=== PATIENT | female | born 1975 | race Caucasian/White ===

== ENCOUNTER 2017-04-28 21:40 | Emergency (ER) | payer OTHER ==
[2017-04-28] MEDS ORDERED: MORPHINE SULFATE 4 MG INJ ONE ×2 (22:02→22:18)
[2017-04-28] MEDS ORDERED: Phenergan 25 MG INJ ONE (22:02)
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
[2017-04-28] MEDS ORDERED: MORPHINE SULFATE 4 MG INJ IV ONE ×2 (22:17→22:18)
[2017-04-28] MEDS ORDERED: Phenergan 25 MG INJ IV ONE (22:18)
[2017-04-28] MEDS ORDERED: SILVADENE 50 GM TP ONE ×2 (23:14→23:17)
[2017-04-28 23:31] VITALS: BP 128/71; PULSE 89; O2SAT 99
== END 2017-04-28 23:41 | disposition home or self-care (01) ==
LOC: ED 21:40
DX: T22.10XA Burn of first degree of shoulder and upper limb, except wrist and hand, unspecified site, initial encounter (principal); T21.11XA Burn of first degree of chest wall, initial encounter; T20.17XA Burn of first degree of neck, initial encounter; T24.112A Burn of first degree of left thigh, initial encounter; T24.111A Burn of first degree of right thigh, initial encounter; T52.0X1A Toxic effect of petroleum products, accidental (unintentional), initial encounter
CPT/HCPCS: 96374; 96375; 99284; J2270; J2550; A9270-GY

== ENCOUNTER 2023-12-27 16:04 | Emergency (ER) | payer OTHER, SELFPAY ==
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
[2023-12-27 17:05] VITALS: RESP 18; TEMP 96.7
[2023-12-27 18:39] VITALS: BP 115/65; PULSE 51; O2SAT 97
[2023-12-27] MEDS ORDERED: TORAdol 30 mg Injection IM ONE (18:43)
[2023-12-27] MEDS ORDERED: TYLENOL EXTRA STRENGTH 500 MG PO STA (18:43)
[2023-12-27] MEDS ORDERED: TYLENOL EXTRA STRENGTH 500 MG ONE (18:47)
[2023-12-27] MEDS ORDERED: TORAdol 30 mg Injection ONE (18:47)
--- NOTE | 2023-12-27 19:14 | XRAY ---
Indication: Pain following fall. Comparison: None 3 view right elbow demonstrates osteopenia and tiny spurring medial epicondyle/coronoid process. No other bony, articular, or soft tissue abnormalities.
--- NOTE | 2023-12-27 19:14 | XRAY ---
Indication: Pain following fall. Comparison: None 3 view right knee demonstrates osteopenia and minimal medial joint space narrowing. No other bony, articular, or soft tissue abnormalities.
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
== END 2023-12-27 19:11 | disposition home or self-care (01) ==
LOC: ED 16:04
DX: S09.90XA Unspecified injury of head, initial encounter (principal); S80.01XA Contusion of right knee, initial encounter; S50.01XA Contusion of right elbow, initial encounter; S16.1XXA Strain of muscle, fascia and tendon at neck level, initial encounter; W01.0XXA Fall on same level from slipping, tripping and stumbling without subsequent striking against object, initial encounter; Y92.512 Supermarket, store or market as the place of occurrence of the external cause; Y99.0 Civilian activity done for income or pay; R51.9 Headache, unspecified
CPT/HCPCS: 70450; 72125; 73080; 73562; 96372; 99283; J1885; A9270-GY

== ENCOUNTER 2024-05-14 21:46 | Emergency (ER) | payer OTHER ==
[2024-05-14 22:10] VITALS: TEMP 97.5
[2024-05-14] MEDS ORDERED: Zofran 4 MG/2 ML VIAL ONE (22:11)
[2024-05-14] MEDS ORDERED: Sodium Chloride 0.9% 1000 ML 1,000 ML ONE (22:11)
[2024-05-14] MEDS: Sodium Chloride 0.9% 1000 ML 1,000 ML IV STA (22:13)
[2024-05-14] MEDS: Zofran 4 MG/2 ML VIAL IV ONE (22:13)
--- NOTE | 2024-05-14 22:14 | ERPHSYRPT ---
- History of Present Illness Time Seen by Provider: 05/14/24 21:48 Historian: patient Exam Limitations: no limitations Patient Subjective Stated Complaint: pt states vomiting and diarrhea for the past 2 days Triage Nursing Assessment: pt ambulated into the er; pt is axo x4; c/o vomiting; pt states 4/10 pain to head; c/o N/V/D; active bowel sounds in all quads; abd round, large, soft, tender; tenderness present to epigastric region; skin PDW; no respiratory distress present; hypertensive Physician History: 48 years old female with history of fibromyalgia not taking any medications presented in the ER with complains of abdominal pain with nausea vomiting diarrhea for the last 3 days with progressive worsening. Patient reports multiple episodes of nonprojectile, nonbilious vomiting without hematemesis and also having multiple episodes of loose stool. Patient is unable to hold much down and feels weak fatigued tired and dehydrated. Denies any fever or chills. No known sick contact. Allergies/Adverse Reactions: Penicillins Allergy (Verified 05/14/24 21:50) Home Medications: Furosemide [Lasix] 20 mg PO DAILY 05/14/24 [History] Omeprazole 20 mg PO DAILY 05/14/24 [History] Topiramate [Topamax] 50 mg PO BID 05/14/24 [History] Hx Tetanus, Diphtheria Vaccination/Date Given: No (unsure) Hx Influenza Vaccination/Date Given: No Hx Pneumococcal Vaccination/Date Given: No Immunizations Up to Date: No Travel Risk - International Travel Have you traveled outside of the country in past 3 weeks: No - Emerging Infectious Disease Are you exhibiting symptoms associated with any current EIDs: Yes Symptoms: Abdominal Pain, Diarrhea, Headaches/Body Aches/, Vomitting - Review of Systems Constitutional: No Symptoms Ears, Nose, & Throat: No Symptoms Respiratory: No Symptoms Cardiac: No Symptoms Abdominal/Gastrointestinal: Abdominal Pain, Nausea, Vomiting, Diarrhea Genitourinary Symptoms: No Symptoms Musculoskeletal: Myalgias Skin: No Symptoms Neurological: No Symptoms Psychological: No Symptoms Endocrine: No Symptoms Hematologic/Lymphatic: No Symptoms Immunological/Allergic: No Symptoms - Past Medical History Pertinent Past Medical History: Yes Neurological History: Other Respiratory History: Other Other Medical History: FIBROMYALGIA, INTERSTITIAL LUNG DISEASE - Past Surgical History Past Surgical History: Yes Neuro Surgical History: No Pertinent History Cardiac: Cardiac Catheterization Respiratory: Other Gastrointestinal: No Pertinent History Genitourinary: No Pertinent History Musculoskeletal: No Pertinent History Female Surgical History: Section Other Surgical History: BRONCHOSCOPY - Female History Hx Now: (unkn) - Social History Smoking Status: Never smoker Exposure to second hand smoke: No Drug Use: none Patient Lives Alone: No - Social Determinants of Health Will the patient participate in the screening: Yes Do you worry about a steady place to live?: No Do you have any problems with any of the following?: No known problems In the past 12 months,have you had to go without utilities?: No Transportation Issues: No Has anyone in your support network made you feel unsafe?: No Have you or anyone in your house had to go without enough: No - Nursing Vital Signs Nursing Vital Signs: Initial Vital Signs Temperature 97.5 F 05/14/24 21:51 Pulse Rate 62 05/14/24 21:51 Respiratory Rate 18 05/14/24 21:51 Blood Pressure 150/80 05/14/24 21:51 O2 Sat by Pulse Oximetry 97 05/14/24 21:51 Pain Scale Pain Intensity 4 - Physical Exam General Appearance: no apparent distress, alert Eye Exam: PERRL/EOMI Ears, Nose, Throat Exam: normal ENT inspection Neck Exam: normal inspection, supple, full range of motion Respiratory Exam: normal breath sounds, lungs clear Cardiovascular Exam: regular rate/rhythm, normal heart sounds Gastrointestinal/Abdomen Exam: soft, normal bowel sounds, tenderness (Neurolyse more on the left side) Back Exam: normal inspection, normal range of motion Extremity Exam: normal inspection, normal range of motion Neurologic Exam: alert, oriented x 3, cooperative Skin Exam: normal color SpO2 Interpretation: normal SpO2: 97 O2 Delivery: Room Air Ordered Tests: Active Orders 24 hr Category Date Time Status IV Insertion STAT Care 05/14/24 22:08 Active NPO (ED) STAT Care 05/14/24 22:08 Active ABDOMEN AND PELVIS W/0 CONTRAS [CT] Stat Exams 05/14/24 22:34 Completed CBC W DIFF Stat Lab 05/14/24 22:05 Completed CMP Stat Lab 05/14/24 22:05 Completed HCG QUALITATIVE, URINE Stat Lab 05/14/24 22:10 Completed LIPASE Stat Lab 05/14/24 22:05 Completed UA W/RFX UR CULTURE Stat Lab 05/14/24 22:10 Completed Medication Summary Discontinued Medications Generic Name Dose Route Start Last Admin Trade Name Cathy PRN Reason Stop Dose Admin Sodium Chloride 1,000 mls @ 999 mls/hr 05/14/24 22:08 05/14/24 23:23 Sodium Chloride 0.9% 1000 Ml IV 05/14/24 23:08 Infused .Q1H1M STA Infusion Sodium Chloride Confirm 05/14/24 22:11 Sodium Chloride 0.9% 1000 Ml Administered 05/14/24 22:12 Dose 1,000 mls @ ud .ROUTE .STK-MED ONE Ondansetron HCl 4 mg 05/14/24 22:08 05/14/24 22:13 Ondansetron Hcl 4 Mg/2 Ml Vial IV 05/14/24 22:09 4 mg STAT ONE Administration Ondansetron HCl Confirm 05/14/24 22:11 Ondansetron Hcl 4 Mg/2 Ml Vial Administered 05/14/24 22:12 Dose 4 mg .ROUTE .STK-MED ONE Lab/Rad Data: Laboratory Result Diagrams 05/14/24 22:05 05/14/24 22:05 Laboratory Results 05/14/24 05/14/24 05/14/24 Range/Units 22:10 22:10 22:05 WBC (3.98-10.04) x10^3/uL RBC (3.93-5.22) x10^6/uL Hgb (11.2-15.7) g/dL Hct (34.1-44.9) % MCV (79.4-94.8) fL MCH (25.6-32.2) pg MCHC (32.2-35.5) g/dL RDW (11.7-14.4) % Plt Count (182-369) x10^3/uL MPV (9.4-12.3) fL Gran % (34.0-71.1) % Immature Gran % (Auto) (0.001-0.429) % Nucleat RBC Rel Count (0.00-0.2) % Eos # (Auto) (0.04-0.36) x10^3/uL Immature Gran # (Auto) (0.001-0.031) x10^3u/L Absolute Lymphs (auto) (1.18-3.74) x10^3/uL Absolute Monos (auto) (0.24-0.86) x10^3/uL Absolute Nucleated RBC (0.00-0.012) x10^3u/L Lymphocytes % (19.3-51.7) % Monocytes % (4.7-12.5) % Eosinophils % (0.7-5.8) % Basophils % (0.1-1.2) % Absolute Granulocytes (1.56-6.13) x10^3/uL Basophils # (0.01-0.08) x10^3/uL Sodium 139 (135-145) mmol/L Potassium 3.9 (3.5-5.1) mmol/L Chloride 106 (98-107) mmol/L Carbon Dioxide 23 (22-30) mmol/L Anion Gap 13.9 (5-15) MEQ/L BUN 13 (7-17) mg/dL Creatinine 1.25 H (0.52-1.04) mg/dL Estimated GFR 53.8 ML/MIN Glucose 107 H (74-106) mg/dL Calcium 9.4 (8.4-10.2) mg/dL Total Bilirubin 0.50 (0.2-1.3) mg/dL AST 27 (14-36) U/L ALT 28 (0-35) U/L Alkaline Phosphatase 86 (38-126) U/L Serum Total Protein 8.2 (6.3-8.2) g/dL Albumin 4.6 (3.5-5.0) g/dL Lipase 170 (23-300) U/L Urine Color Yellow (Yellow) Urine Appearance Clear (Clear) Urine pH 6.5 (4.6-8.0) Ur Specific [place] 1.020 (1.005-1.030) Urine Protein Trace A (Negative) Urine Glucose (UA) Negative (Negative) mg/dL Urine Ketones Negative (Negative) Urine Blood Negative (Negative) Urine Nitrite Negative (Negative) Urine Bilirubin Negative (Negative) Urine Urobilinogen 1.0 A (0.2) mg/dL Ur Leukocyte Esterase Negative (Negative) U Hyaline Cast (Auto) NONE SEEN (0-2) /LPF Urine Microscopic RBC 0-2 (0-5) /HPF Urine Microscopic WBC 3-5 (0-5) /HPF Ur Epithelial Cells None Seen (None Seen) /HPF Urine Bacteria None Seen (None Seen) /HPF Urine Culture Reflexed NO (NO) Urine HCG, Qual NEGATIVE (NEGATIVE) 05/14/24 Range/Units 22:05 WBC 8.0 (3.98-10.04) x10^3/uL RBC 4.73 (3.93-5.22) x10^6/uL Hgb 13.5 (11.2-15.7) g/dL Hct 40.6 (34.1-44.9) % MCV 85.8 (79.4-94.8) fL MCH 28.5 (25.6-32.2) pg MCHC 33.3 (32.2-35.5) g/dL RDW 13.3 (11.7-14.4) % Plt Count 329 (182-369) x10^3/uL MPV 10.1 (9.4-12.3) fL Gran % 54.3 (34.0-71.1) % Immature Gran % (Auto) 0.1 (0.001-0.429) % Nucleat RBC Rel Count 0.0 (0.00-0.2) % Eos # (Auto) 0.17 (0.04-0.36) x10^3/uL Immature Gran # (Auto) 0.01 (0.001-0.031) x10^3u/L Absolute Lymphs (auto) 2.85 (1.18-3.74) x10^3/uL Absolute Monos (auto) 0.57 (0.24-0.86) x10^3/uL Absolute Nucleated RBC 0.00 (0.00-0.012) x10^3u/L Lymphocytes % 35.8 (19.3-51.7) % Monocytes % 7.2 (4.7-12.5) % Eosinophils % 2.1 (0.7-5.8) % Basophils % 0.5 (0.1-1.2) % Absolute Granulocytes 4.31 (1.56-6.13) x10^3/uL Basophils # 0.04 (0.01-0.08) x10^3/uL Sodium (135-145) mmol/L Potassium (3.5-5.1) mmol/L Chloride (98-107) mmol/L Carbon Dioxide (22-30) mmol/L Anion Gap (5-15) MEQ/L BUN (7-17) mg/dL Creatinine (0.52-1.04) mg/dL Estimated GFR ML/MIN Glucose (74-106) mg/dL Calcium (8.4-10.2) mg/dL Total Bilirubin (0.2-1.3) mg/dL AST (14-36) U/L ALT (0-35) U/L Alkaline Phosphatase (38-126) U/L Serum Total Protein (6.3-8.2) g/dL Albumin (3.5-5.0) g/dL Lipase (23-300) U/L Urine Color (Yellow) Urine Appearance (Clear) Urine pH (4.6-8.0) Ur Specific [place] (1.005-1.030) Urine Protein (Negative) Urine Glucose (UA) (Negative) mg/dL Urine Ketones (Negative) Urine Blood (Negative) Urine Nitrite (Negative) Urine Bilirubin (Negative) Urine Urobilinogen (0.2) mg/dL Ur Leukocyte Esterase (Negative) U Hyaline Cast (Auto) (0-2) /LPF Urine Microscopic RBC (0-5) /HPF Urine Microscopic WBC (0-5) /HPF Ur Epithelial Cells (None Seen) /HPF Urine Bacteria (None Seen) /HPF Urine Culture Reflexed (NO) Urine HCG, Qual (NEGATIVE) - Progress Progress: improved Progress Note: 05/14/24 23:59 48-year-old is evaluated in the ER for abdominal pain with nausea vomiting and diarrhea. Patient has no fever. She is not tachycardic. Abdominal exam has so me left-sided tenderness with no guarding. Workup showed normal white count, stable renal function with a creatinine of 1.25. Electrolytes otherwise unremarkable. CT abdomen pelvis without contrast is negative for any acute intra-abdominal pelvic findings. Patient is asked to have a stool sample to check for C. difficile but could not have a bowel movement. She does not have any vomiting in the ER after she received Zofran and fluids. Feeling much better. This could be viral gastroenteritis. Recommended taking Tylenol/Zofran as needed and outpatient follow-up. Discussed signs symptoms of worsening needing return to ER which she seems understanding. Stable for discharge. 05/15/24 00:00 Counseled pt/family regarding: lab results, diagnosis, need for follow-up, rad results Medical Desision Making - Diagnostic Testing Diagnostic test were ordered, analyzed, and reviewed by me: Yes Radiological Interpretation: Reviewed by me, Teleradiologist Report - Risk of complications The pt has a mod risk of morbidity or mortality based on: Need for prescription drug management - Departure Departure Disposition: Home Clinical Impression: Gastroenteritis Condition: Stable Critical Care Time: No Referrals: EVARISTO BERNABE FNP [Primary Care Provider] - Follow up with PCP 1 day Instructions: Viral gastroenteritis in adults Additional Instructions: Drink plenty of fluids. Take Tylenol/Zofran as needed. Follow-up with primary care for reevaluation. Return to ER for intractable nausea vomiting/diarrhea/abdominal pain or if develop fever chills etc. Prescriptions: Ondansetron ODT 4 MG [Zofran Odt 4 mg] 1 ea PO QIDPRN PRN #7 tablet PRN Reason: n/v
[2024-05-14 22:20] LABS: Absolute Neutrophil Ct (ANC) 4.31 x10^3/uL (1.56-6.13); BASOPHIL % 0.5 % (0.1-1.2); Basophil (Absolute #) 0.04 x10^3/uL (0.01-0.08); Eosinophil % 2.1 % (0.7-5.8); Eosinophil (Absolute #) 0.17 x10^3/uL (0.04-0.36); Hematocrit 40.6 % (34.1-44.9); Hemoglobin 13.5 g/dL (11.2-15.7); IMMATURE GRAN # 0.01 x10^3u/L (0.001-0.031); IMMATURE GRAN % 0.1 % (0.001-0.429); Lymphocyte (Absolute #) 2.85 x10^3/uL (1.18-3.74); Lymphocytes % 35.8 % (19.3-51.7); Mean Cell Volume 85.8 fL (79.4-94.8); Mean Corpuscular Hemoglobin 28.5 pg (25.6-32.2); Mean Corpuscular Hgb Concent. 33.3 g/dL (32.2-35.5); Mean Platelet Volume 10.1 fL (9.4-12.3); Monocyte (Absolute #) 0.57 x10^3/uL (0.24-0.86); Monocytes % 7.2 % (4.7-12.5); Neutrophil % 54.3 % (34.0-71.1); Platelet Count 329 x10^3/uL (182-369); Red Blood Count 4.73 x10^6/uL (3.93-5.22); Red Cell Distribution Width 13.3 % (11.7-14.4)
[2024-05-14 22:24] LABS: HCG URINE TEST NEGATIVE (NEGATIVE)
[2024-05-14 22:26] LABS: Appearance Clear (Clear); Bacteria None Seen /HPF (None Seen); Bilirubin Negative (Negative); Blood Negative (Negative); Epithelial Cells None Seen /HPF (None Seen); Glucose, Urine Negative (Negative); Hyaline Casts NONE SEEN /LPF (0-2); Ketones Negative (Negative); Leukocyte Esterase Negative (Negative); Nitrite Negative (Negative); Ph 6.5 (4.6-8.0); Protein,Urine Dip Trace (Negative); RBC 0-2 /HPF (0-5)
[2024-05-14 22:28] LABS: ADD URINE CULTURE? NO (NO)
[2024-05-14 22:38] LABS: ALBUMIN 4.6 g/dL (3.5-5.0); ANION GAP 13.9 MEQ/L (5-15); BILIRUBIN,TOTAL 0.5 mg/dL (0.2-1.3); Calcium 9.4 mg/dL (8.4-10.2); Creatinine 1 1.25 mg/dL (0.52-1.04); EST GLOMERULAR FILTRATION RATE 53.8 ML/MIN; Potassium 3.9 mmol/L (3.5-5.1); Total Protein 8.2 g/dL (6.3-8.2)
--- NOTE | 2024-05-14 23:23 | XRAY ---
CLINICAL HISTORY: vomiting/diarrhrea/ colitis? COMPARISON: None. TECHNIQUE: A CT scan of the abdomen and pelvis was performed without IV contrast. Coronal and sagittal reconstructive images were also obtained. One of the following dose reduction techniques was utilized for this exam: Automated exposure control, adjustment of the mA and/or kV according to patient size, and use of iterative reconstruction. FINDINGS: Limited organ parenchymal evaluation within the limitations of noncontrast study. Sections of the lower thorax show no significant abnormality. Abdomen: A few small calcified granulomas were seen in the liver and spleen. The liver is of average size. No focal or diffuse parenchymal abnormality. The intrahepatic biliary radicals and the bile ducts are normal. The gallbladder is distended. There is no evidence of wall thickening/ pericholecystic collection. The pancreas and adrenal glands are unremarkable. The kidneys are normal in size and shape. No calculi or hydronephrosis. Uncomplicated colonic diverticulosis noted. The visualized small bowel loops are unremarkable. The appendix appears unremarkable. Pelvis: The urinary bladder is partially distended. The rectosigmoid colon is unremarkable. The uterus and adnexa appear unremarkable. Multiple sizable Nabothian cysts were seen in the cervix. No evidence of pelvic lymphadenopathy. Grade 1 anterolisthesis of L4 over L5 noted. IMPRESSION: No significant acute abnormality was detected in the CT abdomen and pelvis, within the limitations of the plain study. Few small old calcified granulomas in the liver and spleen. Multiple sizable nabothian cysts in cervix. Electronically Signed by: Abhijit Lehman MD. (05/14/2024 23:18:58 EDT)
[2024-05-15 00:08] VITALS: RESP 17
[2024-05-15 00:10] VITALS: BP 148/72; PULSE 51; O2SAT 99
== END 2024-05-15 00:10 | disposition home or self-care (01) ==
LOC: ED 21:46
DX: K52.9 Noninfective gastroenteritis and colitis, unspecified (principal); R11.2 Nausea with vomiting, unspecified; R10.9 Unspecified abdominal pain; R53.83 Other fatigue; R53.1 Weakness; Z79.899 Other long term (current) drug therapy
CPT/HCPCS: 36000; 36415; 74176; 80053; 81001; 81025; 83690; 85025; 96360; 96374; 99284; J2405

== ENCOUNTER 2024-07-31 17:13 | Emergency (ER) | payer OTHER ==
[2024-07-31 17:31] VITALS: RESP 18; TEMP 98.2
[2024-07-31] MEDS ORDERED: Sodium Chloride 0.9% 1000 ML 1,000 ML ONE (17:35)
[2024-07-31] MEDS ORDERED: Zofran 4 MG/2 ML VIAL ONE (17:35)
[2024-07-31] MEDS ORDERED: TYLENOL 325 MG ONE (17:35)
[2024-07-31] MEDS: TYLENOL 325 MG PO ONE (17:36)
[2024-07-31] MEDS: Zofran 4 MG/2 ML VIAL IV ONE (17:37)
[2024-07-31 17:38] LABS: Appearance Clear (Clear); Bacteria None Seen /HPF (None Seen); Bilirubin Negative (Negative); Blood Negative (Negative); Epithelial Cells Rare /HPF (None Seen); Glucose, Urine Negative (Negative); Hyaline Casts NONE SEEN /LPF (0-2); Ketones Trace (Negative); Leukocyte Esterase Negative (Negative); Nitrite Negative (Negative); Ph 5.5 (4.6-8.0); Protein,Urine Dip Negative (Negative); RBC 0-2 /HPF (0-5); Specific Gravity >=1.030 (1.005-1.030); Urobilinogen 0.2 mg/dL (0.2); WBC 0-2 /HPF (0-5)
[2024-07-31] MEDS: Sodium Chloride 0.9% 1000 ML 1,000 ML IV STA (17:38)
[2024-07-31 17:44] LABS: ADD URINE CULTURE? NO (NO)
[2024-07-31 17:54] LABS: Absolute Neutrophil Ct (ANC) 4.78 x10^3/uL (1.56-6.13); BASOPHIL % 0.3 % (0.1-1.2); Basophil (Absolute #) 0.02 x10^3/uL (0.01-0.08); Eosinophil % 3.7 % (0.7-5.8); Eosinophil (Absolute #) 0.29 x10^3/uL (0.04-0.36); Hematocrit 36.5 % (34.1-44.9); Hemoglobin 12.4 g/dL (11.2-15.7); IMMATURE GRAN # 0.02 x10^3u/L (0.001-0.031); IMMATURE GRAN % 0.3 % (0.001-0.429); Lymphocyte (Absolute #) 2.29 x10^3/uL (1.18-3.74); Lymphocytes % 28.9 % (19.3-51.7); Mean Cell Volume 85.3 fL (79.4-94.8); Mean Platelet Volume 9.8 fL (9.4-12.3); Monocyte (Absolute #) 0.52 x10^3/uL (0.24-0.86); Monocytes % 6.6 % (4.7-12.5); Neutrophil % 60.2 % (34.0-71.1); Platelet Count 296 x10^3/uL (182-369); Red Blood Count 4.28 x10^6/uL (3.93-5.22); Red Cell Distribution Width 13.6 % (11.7-14.4); White Blood Count 7.9 x10^3/uL (3.98-10.04)
[2024-07-31 18:08] LABS: ALBUMIN 4.1 g/dL (3.5-5.0); ANION GAP 13.9 MEQ/L (5-15); BILIRUBIN,TOTAL 0.3 mg/dL (0.2-1.3); Calcium 9.6 mg/dL (8.4-10.2); Creatinine 1 1.29 mg/dL (0.52-1.04); EST GLOMERULAR FILTRATION RATE 51.5 ML/MIN; Potassium 3.8 mmol/L (3.5-5.1); Total Protein 7.2 g/dL (6.3-8.2)
--- NOTE | 2024-07-31 18:21 | ERPHSYRPT ---
- History of Present Illness Source: patient Exam Limitations: no limitations Patient Subjective Stated Complaint: low back pain bilaterally, hx stage 3b kidney disease Triage Nursing Assessment: pt to ED c/o low back pain x3 days and decreased urine output. has been getting more severe today. reports stage 3b kidney disease. rates 6/10, denies alleviating or aggrevating factors. denies any known injury or trauma. Hx Tetanus, Diphtheria Vaccination/Date Given: No (unsure) Hx Influenza Vaccination/Date Given: No Hx Pneumococcal Vaccination/Date Given: No <FOREST REDMOND - Last Filed: 07/31/24 18:16> <RIGOBERTO KELLEY - Last Filed: 07/31/24 20:02> - History of Present Illness Time Seen by Provider: 07/31/24 17:14 Physician History: Patient is here with low back pain for 3 days. Patient has had some decrease urine output as well. She has had increasing pain throughout today. Reports that she has stage IIIb kidney disease. Rates pain as 6 out of 10. No trauma or other known falls. 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 Patient is taking PO well. Same number of defecations. The patient has no signs of altered mental status, nuchal rigidity, signs of meningitis. The patient is up-to-date on all vaccinations. (FOREST REDMOND) Allergies/Adverse Reactions: Penicillins Allergy (Verified 05/14/24 21:50) Home Medications: No Reportable Medications [No Reported Medications] 07/31/24 [History] Travel Risk - International Travel Have you traveled outside of the country in past 3 weeks: No - Emerging Infectious Disease Are you exhibiting symptoms associated with any current EIDs: No Symptoms: Abdominal Pain, Diarrhea, Headaches/Body Aches/, Vomitting <FOREST REDMOND - Last Filed: 07/31/24 18:16> - Past Medical History Pertinent Past Medical History: Yes Neurological History: Other Respiratory History: Other Other Medical History: FIBROMYALGIA, INTERSTITIAL LUNG DISEASE - Past Surgical History Past Surgical History: Yes Neuro Surgical History: No Pertinent History Cardiac: Cardiac Catheterization Respiratory: Other Gastrointestinal: No Pertinent History Genitourinary: No Pertinent History Musculoskeletal: No Pertinent History Female Surgical History: Section Other Surgical History: BRONCHOSCOPY - Female History Hx Last Menstrual Period: Oct 2007 - ablasion and D&C Hx Now: No - Social History Smoking Status: Never smoker Exposure to second hand smoke: No Drug Use: none Patient Lives Alone: No - Social Determinants of Health Will the patient participate in the screening: Yes Do you worry about a steady place to live?: No Do you have any problems with any of the following?: No known problems In the past 12 months,have you had to go without utilities?: No Transportation Issues: No Has anyone in your support network made you feel unsafe?: No Have you or anyone in your house had to go without enough: No <FOREST REDMONDXiomara - Last Filed: 07/31/24 18:16> - Physical Exam SpO2: 97 <FOREST REDMONDXiomara - Last Filed: 07/31/24 18:16> - Nursing Vital Signs Nursing Vital Signs: Initial Vital Signs Temperature 98.2 F 07/31/24 17:17 Pulse Rate 72 07/31/24 17:17 Respiratory Rate 18 07/31/24 17:17 Blood Pressure 156/84 07/31/24 17:17 O2 Sat by Pulse Oximetry 97 07/31/24 17:17 Pain Scale Pain Intensity [] 6 Pain Intensity 4 - Physical Exam Comments: 07/31/24 18:18 Review of Systems Constitutional: Negative for fever. HENT: Negative for congestion. Respiratory: Negative for shortness of breath. Cardiovascular: Negative for chest pain. Gastrointestinal: Negative for abdominal pain. Genitourinary: Negative for dysuria. Musculoskeletal: Low back pain Skin: Negative for rash. Neurological: Negative for headaches. Psychiatric/Behavioral: Negative for behavioral problems. All other systems reviewed and are negative. Physical Exam Vitals signs and nursing note reviewed. Constitutional: Appearance: Patient is well-developed. HENT: Head: Normocephalic and atraumatic. Eyes: Conjunctiva/sclera: Conjunctivae normal. Neck: Musculoskeletal: Normal range of motion. Trachea: No tracheal deviation. Cardiovascular: Rate and Rhythm: Normal rate. Pulmonary: Effort: Pulmonary effort is normal. No respiratory distress. Abdominal: Palpations: Abdomen is soft. No rebound or guarding Musculoskeletal: General: No deformity. Some tenderness throughout lower back, no midline L- spine tenderness no step-offs no deformities. No overlying skin changes. Skin: General: Skin is warm and dry. Neurological/ Psychiatric: Mental Status: Mental status, behavior, interaction with environment is appropriate for patient's age and condition (FOREST REDMOND) - CT Exams Abdomen/Pelvis CT Interpretation: Tele-radiologist Report (No change compared to 05/14/24. Minimal diverticulosis and mild thoracolumbar DDD.) <RIGOBERTO KELLEY MARK - Last Filed: 07/31/24 20:02> Ordered Tests: Active Orders 24 hr Category Date Time Status IV Insertion STAT Care 07/31/24 17:27 Active ABDOMEN AND PELVIS W/0 CONTRAS [CT] Stat Exams 07/31/24 18:15 Taken CBC W DIFF Stat Lab 07/31/24 17:45 Completed CMP Stat Lab 07/31/24 17:45 Completed LIPASE Stat Lab 07/31/24 17:45 Completed UA W/RFX UR CULTURE Stat Lab 07/31/24 17:20 Completed Medication Summary Discontinued Medications Generic Name Dose Route Start Last Admin Trade Name Freq PRN Reason Stop Dose Admin Acetaminophen 975 mg 07/31/24 17:27 07/31/24 17:36 Acetaminophen 325 Mg Tablet PO 07/31/24 17:28 975 mg STAT ONE Administration Acetaminophen Confirm 07/31/24 17:35 Acetaminophen 325 Mg Tablet Administered 07/31/24 17:36 Dose 975 mg .ROUTE .STK-MED ONE Sodium Chloride 1,000 mls @ 999 mls/hr 07/31/24 17:27 07/31/24 18:41 Sodium Chloride 0.9% 1000 Ml IV 07/31/24 18:27 Infused .Q1H1M STA Infusion Sodium Chloride Confirm 07/31/24 17:35 Sodium Chloride 0.9% 1000 Ml Administered 07/31/24 17:36 Dose 1,000 mls @ ud .ROUTE .STK-MED ONE Ondansetron HCl 4 mg 07/31/24 17:27 07/31/24 17:37 Ondansetron Hcl 4 Mg/2 Ml Vial IV 07/31/24 17:28 4 mg STAT ONE Administration Ondansetron HCl Confirm 07/31/24 17:35 Ondansetron Hcl 4 Mg/2 Ml Vial Administered 07/31/24 17:36 Dose 4 mg .ROUTE .STK-MED ONE Lab/Rad Data: Laboratory Result Diagrams 07/31/24 17:45 07/31/24 17:45 Laboratory Results 07/31/24 07/31/24 07/31/24 Range/Units 17:45 17:45 17:20 WBC 7.9 (3.98-10.04) x10^3/uL RBC 4.28 (3.93-5.22) x10^6/uL Hgb 12.4 (11.2-15.7) g/dL Hct 36.5 (34.1-44.9) % MCV 85.3 (79.4-94.8) fL MCH 29.0 (25.6-32.2) pg MCHC 34.0 (32.2-35.5) g/dL RDW 13.6 (11.7-14.4) % Plt Count 296 (182-369) x10^3/uL MPV 9.8 (9.4-12.3) fL Gran % 60.2 (34.0-71.1) % Immature Gran % (Auto) 0.3 (0.001-0.429) % Nucleat RBC Rel Count 0.0 (0.00-0.2) % Eos # (Auto) 0.29 (0.04-0.36) x10^3/uL Immature Gran # (Auto) 0.02 (0.001-0.031) x10^3u/L Absolute Lymphs (auto) 2.29 (1.18-3.74) x10^3/uL Absolute Monos (auto) 0.52 (0.24-0.86) x10^3/uL Absolute Nucleated RBC 0.00 (0.00-0.012) x10^3u/L Lymphocytes % 28.9 (19.3-51.7) % Monocytes % 6.6 (4.7-12.5) % Eosinophils % 3.7 (0.7-5.8) % Basophils % 0.3 (0.1-1.2) % Absolute Granulocytes 4.78 (1.56-6.13) x10^3/uL Basophils # 0.02 (0.01-0.08) x10^3/uL Sodium 140 (135-145) mmol/L Potassium 3.8 (3.5-5.1) mmol/L Chloride 105 (98-107) mmol/L Carbon Dioxide 25 (22-30) mmol/L Anion Gap 13.9 (5-15) MEQ/L BUN 19 H (7-17) mg/dL Creatinine 1.29 H (0.52-1.04) mg/dL Estimated GFR 51.5 ML/MIN Glucose 112 H (74-106) mg/dL Calcium 9.6 (8.4-10.2) mg/dL Total Bilirubin 0.30 (0.2-1.3) mg/dL AST 27 (14-36) U/L ALT 30 (0-35) U/L Alkaline Phosphatase 68 (38-126) U/L Serum Total Protein 7.2 (6.3-8.2) g/dL Albumin 4.1 (3.5-5.0) g/dL Lipase 137 (23-300) U/L Urine Color Yellow (Yellow) Urine Appearance Clear (Clear) Urine pH 5.5 (4.6-8.0) Ur Specific [place] >=1.030 A (1.005-1.030) Urine Protein Negative (Negative) Urine Glucose (UA) Negative (Negative) mg/dL Urine Ketones Trace A (Negative) Urine Blood Negative (Negative) Urine Nitrite Negative (Negative) Urine Bilirubin Negative (Negative) Urine Urobilinogen 0.2 (0.2) mg/dL Ur Leukocyte Esterase Negative (Negative) U Hyaline Cast (Auto) NONE SEEN (0-2) /LPF Urine Microscopic RBC 0-2 (0-5) /HPF Urine Microscopic WBC 0-2 (0-5) /HPF Ur Epithelial Cells Rare (None Seen) /HPF Urine Bacteria None Seen (None Seen) /HPF Urine Culture Reflexed NO (NO) - Progress Progress: improved Counseled pt/family regarding: lab results, diagnosis, need for follow-up, rad results <FOREST REDMODN - Last Filed: 07/31/24 18:16> <RIGOBERTO KELLEY - Last Filed: 07/31/24 20:02> - Progress Progress Note: 07/31/24 18:19 Differential diagnosis includes kidney stone, compression fracture, infection, UTI, triple AAA - basic labs including: CBC, lipase, CMP, UA - insert IV for symptom management - consider imaging: CT ab/pelvis or U/S Reevaluation Patient feels improved with medication and fluids. Creatinine is near baseline. GFR is near baseline as well. Plan for CT scan without contrast for better visualization, looking for kidney stones, other obvious low back injuries or other issues. Transfer of care at [address] Kelley. He will follow-up on all labs and imaging, reexam. Disposition per these. (FOREST REDMOND) 07/31/24 19:[address] Kelley @ 1900: perrl, eomi, pharynx pink, TM's not injected, lungs clear, no cardiac rub, abdominal B.S. normal, no back tenderness,no ankle edema, alert & cooperative. (RIGOBERTO KELLEY) Medical Desision Making - Diagnostic Testing Radiological Interpretation: Discussed w/ radiologist <RIGOBERTO KELLEY - Last Filed: 07/31/24 20:02> - Departure Critical Care Time: No <FOREST REDMOND - Last Filed: 07/31/24 18:16> <RIGOBERTO KELLEY - Last Filed: 07/31/24 20:02> - Departure Clinical Impression: Low back pain Condition: Stable Referrals: EVARISTO BERNABE HAND DEVELOPER [Primary Care Provider] - Follow up/PCP as directed Instructions: Low Back Pain (DC)
[2024-07-31 19:05] VITALS: O2SAT 96
[2024-07-31 20:03] VITALS: BP 131/70; PULSE 51
--- NOTE | 2024-07-31 22:24 | XRAY ---
Indication: Low back pain. Multiple contiguous axial images obtained through the abdomen and pelvis without contrast. Comparison: May 14, 2024 Lung bases clear. Heart not enlarged. Small hiatal hernia. Stomach is distended with food. Noncontrasted stomach and bowel loops appear nonobstructed with normal appendix. Minimal descending and sigmoid diverticulosis. Gallbladder contracted without gallstones. No free fluid/air. Remaining liver, gallbladder, pancreas, spleen, adrenal glands, kidneys, ureters, bladder, uterus, and aorta are unremarkable for noncontrast exam. Osseous structures intact with minimal/mild multilevel thoracolumbar degenerative spondylosis and 5 mm L4 anterolisthesis on L5. Impression: Chronic findings including hiatal hernia, colonic diverticulosis, and chronic bony findings. Remaining CT abdomen/pelvis without contrast exam is negative.
== END 2024-07-31 20:14 | disposition home or self-care (01) ==
LOC: ED 17:13
DX: M54.50 Low back pain, unspecified (principal); N18.32 Chronic kidney disease, stage 3b
CPT/HCPCS: 36000; 36415; 74176; 80053; 81001; 83690; 85025; 96360; 96374; 99284; J2405; A9270-GY